=== PATIENT | male | born 1955 | race Caucasian/White ===

== ENCOUNTER 2017-02-10 21:13 | Emergency (ER) | payer OTHER ==
[~2017-02-10] VITALS: Ht 170.2 cm; Wt 54.4 kg
[2017-02-10] MEDS ORDERED: ONDANSETRON 4 MG/2 ML (SDV) Z0FRAN IVP ONE (21:45)
[2017-02-10] MEDS ORDERED: NS IV 1000 ML 1,000 ML IV ONE ×2 (21:51→22:44)
[2017-02-10] MEDS ORDERED: fentaNYL INJECTION 100 MCG/2 ML AMP IVP ONE (22:00)
[2017-02-10 22:19] LABS: BILIRUBIN,URINE NEGATIVE (NEGATIVE); KETONES,URINE 4+ (NEGATIVE); LEUKOCYTE ESTERASE ,URINE 1+ (NEGATIVE); NITRITE,URINE NEGATIVE (NEGATIVE); PH,URINE 6 (5-9); PROTEIN,URINE 2+ (NEGATIVE); UROBILINOGEN,URINE 1 MG/DL (NORMAL)
[2017-02-10 22:29] LABS: BASOPHILS % (AUTO) 0 % (0-10); EOSINOPHILS % (AUTO) 0 % (0-10); LYMPHOCYTES # (AUTO) 0.9 X 10^3 (1.0-4.0); LYMPHOCYTES % (AUTO) 6 % (12-44); MEAN CORPUSCULAR HEMOGLOBIN 31 PG (25-34); MEAN CORPUSCULAR HGB CONC 34 G/DL (32-36); MEAN CORPUSCULAR VOLUME 90 FL (80-99); MEAN PLATELET VOLUME 9.8 FL (7.4-10.4); MONOCYTES # (AUTO) 0.8 X 10^3 (0.0-1.0); MONOCYTES % (AUTO) 5 % (0-12); NEUTROPHILS # (AUTO) 14.6 X 10^3 (1.8-7.8); NEUTROPHILS % (AUTO) 89 % (42-75); PLATELET COUNT 303 10^3/uL (130-400); RED BLOOD COUNT 4.85 10^6/uL (4.35-5.85); RED CELL DISTRIBUTION WIDTH 12.9 % (10.0-14.5); WHITE BLOOD COUNT 16.4 10^3/uL (4.3-11.0)
[2017-02-10 22:34] LABS: WBC,URINE 0-2 /HPF
[2017-02-10 22:43] LABS: ALANINE AMINOTRANSFERASE 10 U/L (0-55); ALBUMIN 4.6 GM/DL (3.2-4.5); ANION GAP 15 MMOL/L (5-14); ASPARTATE AMINO TRANSFERASE 18 U/L (5-34); BILIRUBIN,TOTAL 0.5 MG/DL (0.1-1.0); BLOOD UREA NITROGEN 16 MG/DL (7-18); BUN/CREATININE RATIO 14; CALCIUM 9.8 MG/DL (8.5-10.1); CARBON DIOXIDE 23 MMOL/L (21-32); CHLORIDE 104 MMOL/L (98-107); CREATININE SERUM 1.12 MG/DL (0.60-1.30); GFR ESTIMATED > 60; GLUCOSE 164 MG/DL (70-105); LIPASE 31 U/L (8-78); POTASSIUM 3.9 MMOL/L (3.6-5.0); SODIUM 142 MMOL/L (135-145); TOTAL PROTEIN 7.1 GM/DL (6.4-8.2)
[2017-02-10] MEDS ORDERED: KETOROLAC 30 MG/ML VIAL IVP ONE (22:45)
[2017-02-10 22:59] LABS: BAND NEUTROPHILS 18 %; BASOPHILS % (MANUAL) 0 %; EOSINOPHILS % (MANUAL) 0 %; LYMPHOCYTES % (MANUAL) 10 %; NEUTROPHILS % (MANUAL) 70 %
[2017-02-10] MEDS ORDERED: RX-ONDANSETRON 4 MG ODT (ZOFRAN) PPK #4 SL STA (23:32)
[2017-02-10] MEDS ORDERED: ONDA4TAB8 SL ×2 (23:38→23:40)
[2017-02-10] MEDS ORDERED: HYDR-3812 PO (23:38)
[2017-02-10] MEDS ORDERED: CIPR-225 PO ×2 (23:38→23:40)
--- NOTE | 2017-02-10 23:39 | ED Abdominal Pain ---
General Chief Complaint: Abdominal/GI Problems Stated Complaint: LT SIDED ABD PAIN Nursing Triage Note: Left sided abd pain reported, pt states pain started 0430. Pt has not sought medical attention before now. Sepsis Screen: No Definite Risk Source of Information: Patient Exam Limitations: No Limitations History of Present Illness Time Seen By Provider: 21:24 Initial Comments This 62-year-old gentleman presents to the emergency room with left flank pain started early this morning, eased, and then suddenly became exacerbated after supper tonight. Pain is accompanied by nausea and vomiting. He denies fever. He is in moderate distress from the pain at this time. He does have a history of kidney stones and presumes that is what is causing his present pain. He denies hematuria or dysuria. Allergies and Home Medications Allergies Coded Allergies: No Known Drug Allergies (Unverified , 02/10/17) Home Medications Ciprofloxacin HCl 500 Mg Tablet, 500 MG PO BID, #14 Prescribed by: TASHIA LONG on 02/10/17 2340 Hydrocodone/Acetaminophen 1 Each Tablet, 1-2 EACH PO Q6H PRN for PAIN, #20 Prescribed by: TASHIA LONG on 02/10/17 2338 Ondansetron 4 Mg Tab.rapdis, 4 MG SL Q4H PRN for NAUSEA/VOMITING-1ST LINE, #10 Prescribed by: TASHIA LONG on 02/10/17 2340 Review of Systems Constitutional: no symptoms reported EENTM: No Symptoms Reported Respiratory: No Symptoms Reported Cardiovascular: No Symptoms Reported Gastrointestinal: See HPI Genitourinary: See HPI Musculoskeletal: no symptoms reported Skin: no symptoms reported Psychiatric/Neurological: No Symptoms Reported Endocrine: No Symptoms Reported Hematologic/Lymphatic: No Symptoms Reported Past Aqqtvnz-Taxxln-Qsbqxu Hx Patient Social History Alcohol Use: Denies Use Recreational Drug Use: No Smoking Status: Current Everyday Smoker Type Used: Cigarettes 2nd Hand Smoke Exposure: Yes Recent Foreign Travel: No Contact w/Someone Who Travel: No Recent Infectious Disease Expo: No Recent Hopitalizations: No Seasonal Allergies Seasonal Allergies: No Surgeries HX Surgeries: No Respiratory Hx Respiratory Disorders: No Cardiovascular Hx Cardiac Disorders: No Neurological Hx Neurological Disorders: No Reproductive System Hx Reproductive Disorders: No Genitourinary Hx Genitourinary Disorders: Yes Genitourinary Disorders: Kidney Stones Gastrointestinal Hx Gastrointestinal Disorders: No Musculoskeletal Hx Musculoskeletal Disorders: No Endocrine Hx Endocrine Disorders: No HEENT HX ENT Disorders: No Cancer Hx Cancer: No Psychosocial Hx Psychiatric Problems: No Physical Exam Vital Signs VS - Last 72 Hours, by Label 02/10/17 02/10/17 02/10/17 02/11/17 21:15 22:57 22:58 00:36 Temp 98.3 98.3 98.3 98.3 Pulse 92 92 Resp 22 22 B/P (MAP) 126/77 Pulse Ox 96 96 O2 Delivery Room Air Capillary Refill : Less Than 3 Seconds General Appearance: WD/WN, moderate distress HEENT: PERRL/EOMI, normal ENT inspection Neck: normal inspection Respiratory: lungs clear, normal breath sounds, no respiratory distress, no accessory muscle use Cardiovascular: regular rate, rhythm, no edema, no murmur Gastrointestinal: normal bowel sounds, soft, tenderness (left flank) Extremities: normal inspection, no pedal edema Neurologic/Psychiatric: necktie stitcher II-XII nml as tested, no motor/sensory deficits, alert, normal mood/affect, oriented x 3 Skin: normal color, warm/dry Progress/Results/Core Measures Results/Orders Lab Results Laboratory Tests Test 02/10/17 21:35 02/10/17 22:18 Range/Units Urine Color YELLOW Urine Clarity CLEAR Urine pH 6 5-9 Urine Specific [place] 1.030 H 1.016-1.022 Urine Protein 2+ H NEGATIVE Urine Glucose (UA) NEGATIVE NEGATIVE Urine Ketones 4+ H NEGATIVE Urine Nitrite NEGATIVE NEGATIVE Urine Bilirubin NEGATIVE NEGATIVE Urine Urobilinogen 1 NORMAL MG/DL Urine Leukocyte Esterase 1+ H NEGATIVE Urine RBC (Auto) 5+ H NEGATIVE Urine RBC 10-25 H /HPF Urine WBC 0-2 /HPF Urine Crystals NONE /LPF Urine Bacteria NONE /HPF Urine Casts NONE /LPF Urine Mucus SMALL H /LPF Urine Culture Indicated NO White Blood Count 16.4 H 4.3-11.0 10^3/uL Red Blood Count 4.85 4.35-5.85 10^6/uL Hemoglobin 15.0 13.3-17.7 G/DL Hematocrit 44 40-54 % Mean Corpuscular Volume 90 80-99 FL Mean Corpuscular Hemoglobin 31 25-34 PG Mean Corpuscular Hemoglobin Concent 34 32-36 G/DL Red Cell Distribution Width 12.9 10.0-14.5 % Platelet Count 303 130-400 10^3/uL Mean Platelet Volume 9.8 7.4-10.4 FL Neutrophils (%) (Auto) 89 H 42-75 % Lymphocytes (%) (Auto) 6 L 12-44 % Monocytes (%) (Auto) 5 0-12 % Eosinophils (%) (Auto) 0 0-10 % Basophils (%) (Auto) 0 0-10 % Neutrophils # (Auto) 14.6 H 1.8-7.8 X 10^3 Lymphocytes # (Auto) 0.9 L 1.0-4.0 X 10^3 Monocytes # (Auto) 0.8 0.0-1.0 X 10^3 Eosinophils # (Auto) 0.0 0.0-0.3 10^3/uL Basophils # (Auto) 0.0 0.0-0.1 10^3/uL Neutrophils % (Manual) 70 % Lymphocytes % (Manual) 10 % Monocytes % (Manual) 2 % Eosinophils % (Manual) 0 % Basophils % (Manual) 0 % Band Neutrophils 18 % Blood Morphology Comment NORMAL Sodium Level 142 135-145 MMOL/L Potassium Level 3.9 3.6-5.0 MMOL/L Chloride Level 104 98-107 MMOL/L Carbon Dioxide Level 23 21-32 MMOL/L Anion Gap 15 H 5-14 MMOL/L Blood Urea Nitrogen 16 7-18 MG/DL Creatinine 1.12 0.60-1.30 MG/DL Estimat Glomerular Filtration Rate > 60 BUN/Creatinine Ratio 14 Glucose Level 164 H 70-105 MG/DL Calcium Level 9.8 8.5-10.1 MG/DL Total Bilirubin 0.5 0.1-1.0 MG/DL Aspartate Amino Transf (AST/SGOT) 18 5-34 U/L Alanine Aminotransferase (ALT/SGPT) 10 0-55 U/L Alkaline Phosphatase 51 40-136 U/L Total Protein 7.1 6.4-8.2 GM/DL Albumin 4.6 H 3.2-4.5 GM/DL Lipase 31 8-78 U/L My Orders Orders - TASHIA JIANG MD Cbc With Automated Diff (02/10/17 21:24) Comprehensive Metabolic Panel (02/10/17 21:24) Lipase (02/10/17 21:24) Ua Culture If Indicated (02/10/17 21:24) Saline Lock/Iv-Start (02/10/17 21:24) Ondansetron Injection (Zofran Injectio (02/10/17 21:45) Ns Iv 1000 Ml (Sodium Chloride 0.9%) (02/10/17 21:51) Fentanyl Injection (Sublimaze Injection (02/10/17 22:00) Manual Differential (02/10/17 22:18) Ct Abd/Pelvis Wo(Kidney Stone) (02/10/17 22:44) Ketorolac Injection (Toradol Injection) (02/10/17 22:45) Ns Iv 1000 Ml (Sodium Chloride 0.9%) (02/10/17 22:44) Abdomen/Kub 1[place] (02/10/17 23:07) Rx-Hydrocodone/Apap 5-325 Mg (Rx-Vicodin (02/10/17 23:45) Rx-Ondansetron Po (Rx-Zofran Po) (02/10/17 23:32) Iv Push Signal [employer] Director Ed (02/10/17 ) Medications Given in ED Vital Signs/I&O Vital Sign - Last 12Hours 02/10/17 02/10/17 02/10/17 02/11/17 21:15 22:57 22:58 00:36 Temp 98.3 98.3 98.3 98.3 Pulse 92 92 Resp 22 22 B/P (MAP) 126/77 Pulse Ox 96 96 O2 Delivery Room Air Blood Pressure Mean: 93 Progress Note : Progress Note Patient was initially treated with Zofran, IV fluids, and fentanyl. UA demonstrated hematuria. Ureteral stone was presumed and CT was pursued. Ureteral stone was confirmed. Toradol was added. Urine demonstrated 4+ ketones and a second liter of IV fluids was added. Zofran and hydrocodone take- home packets were dispensed. Diagnostic Imaging Diagonstic Imaging: CT Plain Films/CT/US/NM/MRI: abdomen, pelvis Comments CT of the abdomen and pelvis was viewed by me. [employer] report reviewed. There was a 2 mm stone near the left UVJ with hydronephrosis. Departure Impression Impression: Primary Impression: Left ureteral stone Additional Impressions: Hydronephrosis Qualified Codes: N13.30 - Unspecified hydronephrosis Nausea and vomiting Qualified Codes: R11.2 - Nausea with vomiting, unspecified Disposition: 01 HOME, SELF-CARE Condition: Improved Departure-Patient Inst. Decision time for Depature: 23:25 Referrals: NO,LOCAL PHYSICIAN (PCP) Primary Care Physician VINCE ZHONG MD Patient Instructions: Kidney Stones in Adults Add. Discharge Instructions: Follow-up with a primary care provider and/or Dr. yoselyn mlain (urologist) as soon as possible. Strain your urine and keep any stones collected. Bring no stones to your follow -up appointment. Take your pain medication as prescribed. Also take the antibiotic as prescribed to prevent urinary tract infection. You may dissolve the Zofran (ondansetron) under the tongue every 4 hours as needed for nausea and vomiting. Return to the emergency room if symptoms worsen. All discharge instructions reviewed with patient and/or family. Voiced understanding. Scripts Ciprofloxacin HCl (Cipro) 500 Mg Tablet 500 MG PO BID, #14 TAB Prov: TASHIA JIANG MD 02/10/17 Ondansetron (Zofran Odt) 4 Mg Tab.rapdis 4 MG SL Q4H Y for NAUSEA/VOMITING-1ST LINE, #10 TAB Prov: TASHIA JIANG MD 02/10/17 Hydrocodone/Acetaminophen (Hydrocodon -Acetaminophen 5-325) 1 Each Tablet 1-2 EACH PO Q6H Y for PAIN, #20 TAB Prov: TASHIA JIANG MD 02/10/17 TASHIA JIANG MD Feb 10, 2017 23:39
[2017-02-10] MEDS ORDERED: RX-HYDROCODONE/APAP 5/325 MG #4 TAB PK PO PRN (23:45)
[2017-02-11 00:36] VITALS: BP 126/77
--- NOTE | 2017-02-11 07:05 | Diagnostic Imaging Report ---
PROCEDURE: CT urinary tract, rule out kidney stone. TECHNIQUE: Multiple contiguous axial images were obtained through the abdomen and pelvis without the use of intravenous contrast. INDICATION: Left flank pain. FINDINGS: The heart size is normal. The lung bases are clear. The liver is normal in size without focal lesions. The gallbladder is unremarkable. There is no biliary duct dilatation. The spleen is normal. The pancreas and adrenal glands are unremarkable. The right kidney is normal. There is mild left hydronephrosis and hydroureter secondary to 2 mm stone in the distal left ureter just proximal to the left UVJ. There are some degenerative changes and curvature of the lumbar spine. There is diverticular disease without evidence of diverticulitis. There are degenerative changes in the lumbar spine. IMPRESSION: Mild left hydronephrosis and hydroureter secondary to a 2 mm stone in the distal left just proximal to the left UVJ. Diverticular disease without evidence of diverticulitis Degenerative changes in the spine Dictated by: Dictated on workstation # [id number]
--- NOTE | 2017-02-11 08:22 | Diagnostic Imaging Report ---
INDICATION: Left flank pain. FINDINGS: There are pelvic calcifications. Phleboliths are present. No opaque urinary tract stone burden could be identified. The bowel gas pattern is normal. IMPRESSION: No acute appearing abnormality. Dictated by: Dictated on workstation # [id number]
== END 2017-02-10 23:54 | disposition home or self-care (01) ==
LOC: ER 21:16
DX: N20.1 Calculus of ureter (principal); N13.30 Unspecified hydronephrosis; F17.210 Nicotine dependence, cigarettes, uncomplicated
CPT/HCPCS: 36415; 74000; 74176; 80053; 81000; 83690; 85007; 85027; 96374; 96375